=== PATIENT | female | born 1995 | race Caucasian/White ===

== ENCOUNTER 2021-02-09 08:04 | Outpatient (CLI) | payer OTHER ==
[2021-02-09 16:41] LABS: SARS-CoV-2 PCR by NAA DETECTED (NotDetected)
== END 2021-02-09 08:05 | disposition home or self-care (01) ==
LOC: CSHLAB 08:04
PROVIDERS: ATTEND Obstetrics & Gynecology
DX: U07.1 COVID-19 (principal)
CPT/HCPCS: U0003; U0005

== ENCOUNTER 2021-02-13 05:30 | Inpatient (IN) | payer OTHER ==
[2021-02-20 06:07] VITALS: BMI 32.9
[2021-02-20] MEDS: Lactated Ringer's 1,000 ML IV SCH ×2 (06:10→07:01)
[2021-02-20] MEDS ORDERED: Butorphanol Tartrate 1 MG/ML VIAL SLOW IVP PRN (06:24)
[2021-02-20] MEDS ORDERED: HYDROcodone/Acetaminophen 5/325 mg Tablet PO PRN ×2 (06:24→19:49)
[2021-02-20] MEDS ORDERED: Lidocaine 1% (PF) 30 ML VIAL SC PRN (06:24)
[2021-02-20] MEDS ORDERED: Ondansetron PF 4 MG/2 ML Vial IVP PRN ×3 (06:24→19:49)
[2021-02-20] MEDS ORDERED: Methylergonovine 0.2 MG/ML VIAL IM PRN ×2 (06:24→19:49)
[2021-02-20] MEDS ORDERED: Diphenoxylate HCl/Atropine Tablet PO PRN ×2 (06:24)
[2021-02-20] MEDS ORDERED: Promethazine HCl 25 MG/ML VIAL IM PRN ×3 (06:24→19:49)
[2021-02-20] MEDS ORDERED: Misoprostol 200 MCG TAB PR PRN (06:24)
[2021-02-20] MEDS ORDERED: hydrALAZINE 20 MG/ML VIAL SLOW IVP PRN ×2 (06:24→19:49)
[2021-02-20] MEDS ORDERED: Carboprost 250 MCG/ML AMP IM PRN (06:24)
[2021-02-20] MEDS ORDERED: Zolpidem Tartrate 5 MG TAB PO PRN ×2 (06:24→19:49)
[2021-02-20] MEDS ORDERED: Acetaminophen 500 MG TAB PO PRN (06:24)
[2021-02-20] MEDS ORDERED: Ibuprofen 800 MG TAB PO PRN (06:24)
[2021-02-20] MEDS ORDERED: Docusate 100 MG CAP PO PRN (06:24)
[2021-02-20] MEDS ORDERED: NS w/ Oxytocin 30 units 500 ML IVPB SCH (06:30)
[2021-02-20] MEDS ORDERED: NS w/ Oxytocin 30 units 500 ML IV SCH ×3 (06:30→20:15)
[2021-02-20 06:44] LABS: Hemoglobin 10.3 g/dL (12.0-15.5); Mean Corpuscular Hemoglobin 29.1 pg (27.0-33.0); Mean Corpuscular Volume 88.1 fl (81.6-98.3); Mean Platelet Volume 11.1 fl (7.4-10.4); Platelet Count 158 10x3/uL (150-450); Red Blood Cell (RBC) Count 3.54 10x6/uL (3.90-5.03); White Blood Cell (WBC) Count 8.7 10x3/uL (3.5-10.5)
[2021-02-20] MEDS: Misoprostol 100 MCG TAB VAG SCH ×2 (06:54→20:40)
[2021-02-20] MEDS ORDERED: Penicillin G Potassium 5 MILL.UNITS in Sodium Chloride 0.9% 100 ML IVPB SCH (07:00)
[2021-02-20 07:11] LABS: Hep B Surf Ag Non-Reactive S/CO (NonReactive)
[2021-02-20 07:16] LABS: HBSAg Index 0.27 S/CO (0-0.99)
[2021-02-20 07:35] LABS: Syphilis Antibody Nonreactive (Nonreactive); Syphilis Antibody Index 0.04 S/CO (<1.00 Non-Reactive)
[2021-02-20] MEDS ORDERED: Bupivacaine 0.25% HCL 30 ML VIAL ONE (08:00)
[2021-02-20] MEDS: Penicillin G 2.5 MILL.units 2.5 MILL.UNITS in Premix Bag 1 BAG IVPB SCH ×3 (11:25→20:40)
[2021-02-20] MEDS ORDERED: Fentanyl 2 mcg/Bup 0.1% Cadd 100 ML ONE (13:16)
[2021-02-20] MEDS ORDERED: Hydrocerin (Eucerin) Cream 120 gm Jar TOP PRN (14:07)
[2021-02-20] MEDS ORDERED: Acetaminophen 325 MG TAB PO PRN (14:07)
[2021-02-20] MEDS ORDERED: diphenhydrAMINE 50 MG/ML VIAL IVP PRN (14:07)
[2021-02-20] MEDS ORDERED: Naloxone HCl 0.4 mg/ml Vial IVP PRN ×2 (14:07)
[2021-02-20] MEDS ORDERED: ePHEDrine Sulfate 50 MG/10 ML VIAL SLOW IVP PRN (14:07)
[2021-02-20] MEDS ORDERED: Lactated Ringer's 500 ML IV PRN (14:07)
[2021-02-20] MEDS ORDERED: Fentanyl 2 mcg/Bupivacaine 0.1% Cassette 100 ML EPIDURAL SCH (14:15)
[2021-02-20] MEDS ORDERED: Communication Order-Pharmacy FS PRN (14:15)
[2021-02-20] MEDS ORDERED: Misoprostol 200 MCG TAB VAG PRN (19:49)
[2021-02-20] MEDS ORDERED: Measles/Mumps/Rubella 10 MCG/0.5 ML VIAL SC ONE (19:49)
[2021-02-20] MEDS ORDERED: Bisacodyl 10 MG SUPP PR PRN (19:49)
[2021-02-20] MEDS ORDERED: Benzocaine-Menthol 82.5 ML CAN TOP PRN (19:49)
[2021-02-20] MEDS ORDERED: Varicella virus, LIVE 0.5 ML VIAL SC ONE (19:49)
[2021-02-20] MEDS ORDERED: Lanolin Ointment 7 GM TUBE TOP PRN (19:49)
[2021-02-20] MEDS ORDERED: diphenhydrAMINE 25 MG CAP PO PRN (19:49)
[2021-02-20] MEDS ORDERED: Preparation H Ointment 28 GM TUBE PR PRN (19:49)
[2021-02-20] MEDS ORDERED: Milk Of Magnesia 30 ML UDCUP PO PRN (19:49)
[2021-02-20] MEDS ORDERED: Boostrix 0.5 ML (Tdap) VIAL IM ONE (19:49)
[2021-02-20] MEDS: Docusate Calcium (SURFAK) 240 MG CAP PO SCH (20:55)
[2021-02-21] MEDS: Ibuprofen 800 MG TAB PO SCH ×4 (00:19→21:35)
[2021-02-21 06:10] LABS: Hemoglobin 9.5 g/dL (12.0-15.5); Mean Corpuscular HGB CONC 33.1 g/dL (32.0-36.0); Mean Corpuscular Hemoglobin 29.1 pg (27.0-33.0); Mean Platelet Volume 11.4 fl (7.4-10.4); Platelet Count 140 10x3/uL (150-450); RBC Distribution Width 14.1 % (11.5-14.5); Red Blood Cell (RBC) Count 3.26 10x6/uL (3.90-5.03); White Blood Cell (WBC) Count 11.6 10x3/uL (3.5-10.5)
[2021-02-21] MEDS: Docusate Calcium (SURFAK) 240 MG CAP PO SCH ×2 (08:32→21:35)
[2021-02-21] MEDS: Ferrous Sulfate 325 MG TAB PO SCH ×2 (08:32→16:38)
[2021-02-21] MEDS: Prenatal Vitamin 1 TAB PO SCH (08:32)
[2021-02-22] MEDS: Ibuprofen 800 MG TAB PO SCH ×2 (05:55→14:05)
[2021-02-22 08:16] VITALS: BP 102/57; TEMP 98
[2021-02-22] MEDS: Ferrous Sulfate 325 MG TAB PO SCH (08:48)
[2021-02-22] MEDS: Prenatal Vitamin 1 TAB PO SCH (08:48)
[2021-02-22] MEDS: Docusate Calcium (SURFAK) 240 MG CAP PO SCH (08:48)
== END 2021-02-22 15:45 | disposition home or self-care (01) | DRG 807 ==
LOC: CSHLD 02-20 05:24 → CSHPP 02-20 19:55
PROVIDERS: ADMIT Obstetrics & Gynecology; ATTEND Obstetrics & Gynecology
PROC: 10907ZC Drainage of Amniotic Fluid, Therapeutic from Products of Conception, Via Natural or Artificial Opening (ICD-10-PCS; principal; 2021-02-20)
PROC: 10E0XZZ Delivery of Products of Conception, External Approach (ICD-10-PCS; 2021-02-20)
PROC: 3E033VJ Introduction of Other Hormone into Peripheral Vein, Percutaneous Approach (ICD-10-PCS; 2021-02-20)
PROC: 0HQ9XZZ Repair Perineum Skin, External Approach (ICD-10-PCS; 2021-02-20)
PROC: 30233S1 Transfusion of Nonautologous Globulin into Peripheral Vein, Percutaneous Approach (ICD-10-PCS; 2021-02-21)
DX: O40.3XX0 Polyhydramnios, third trimester, not applicable or unspecified (principal); Z37.0 Single live birth; O70.0 First degree perineal laceration during delivery; Z3A.40 40 weeks gestation of pregnancy
CPT/HCPCS: 36415; 85027; 85461; 86780; 86850; 86900; 86901; 87340; 90384; 96372; J2540; J2590; J3490; J7120; S0020

== ENCOUNTER 2021-02-13 13:53 | Day surgery (SDC) | payer OTHER ==
[2021-02-13 14:46] VITALS: BMI 32.8
== END 2021-02-13 18:15 | disposition home or self-care (01) ==
LOC: CSHLD/OP 13:53
PROVIDERS: ATTEND Obstetrics & Gynecology
DX: O40.3XX0 Polyhydramnios, third trimester, not applicable or unspecified (principal); O98.513 Other viral diseases complicating pregnancy, third trimester; U07.1 COVID-19; Z3A.39 39 weeks gestation of pregnancy
CPT/HCPCS: 76819